=== PATIENT | male | born 1955 | race Caucasian/White ===

== ENCOUNTER 2020-03-17 08:42 | Day surgery (SDC) | payer MEDICARE ==
[~2020-03-17 08:42] MED LIST: Lactated Ringers 1,000 ML IV SCH; Midazolam 1 MG/ML 2 ML SDV ONE; Propofol 200 MG/20 ML SDV ONE
--- NOTE | 2020-03-17 10:13 | PCM.PREANE ---
Preanesthetic Assessment - Anesthesia/Transfusion/Family Hx Anesthesia History: Prior Anesthesia Without Reaction Other Type of Anesthesia Reaction Comment: Denies problem with anesthesia "get severe cramps post Colonoscopy" Family History of Anesthesia Reaction: No Transfusion History: No Prior Transfusion(s) - Review of Systems General: Fatigue Pulmonary: No Symptoms Cardiovascular: No Symptoms Gastrointestinal: No Symptoms Neurological: No Symptoms Other: Reports: None - Physical Assessment NPO Status Date: 03/16/20 Vital Signs: Last Vital Signs Temp 96.6 F L 03/17/20 09:20 Pulse 39 L 03/17/20 09:20 Resp 16 03/17/20 09:20 BP 161/79 H 03/17/20 09:20 Pulse Ox 97 03/17/20 09:20 Height: 6 ft Weight: 100.244 kg ASA Class: 2 Mental Status: Alert & Oriented x3 Airway Class: Mallampati = 2 Dentition: Reports: Normal Dentition ROM/Head Extension: Full Lungs: Clear to Auscultation, Normal Respiratory Effort Cardiovascular: Regular Rate, Regular Rhythm - Allergies Allergies/Adverse Reactions: Allergies Allergy/AdvReac Type Severity Reaction Status Date / Time No Known Allergies Allergy Verified 03/14/20 07:58 - Blood Blood Available: No - Anesthesia Plan Pre-Op Medication Ordered: Other (robinul 0.4) - Acknowledgements Anesthesia Type Planned: General Anesthesia (tiva) Pt an Appropriate Candidate for the Planned Anesthesia: Yes Alternatives and Risks of Anesthesia Discussed w Pt/Guardian: Yes Pt/Guardian Understands and Agrees with Anesthesia Plan: Yes Additional Comments: pmh resting bradycardia, 39 with normal pr interval, tremor( not on beta blockers), william PreAnesthesia Questionnaire HEENT History: Reports: None Cardiovascular History: Reports: None Respiratory History: Reports: Sleep Apnea Other Respiratory History: Sleep apnea with machine Gastrointestinal History: Reports: Colon Polyp Genitourinary History: Reports: None Musculoskeletal History: Reports: Back Pain, Chronic, Fracture Other Musculoskeletal History: hx fx collarbone and leg Neurological History: Reports: Other (See Below) Other Neuro History: benign essential tremors Psychiatric History: Reports: None Endocrine/Metabolic History: Reports: Obesity/BMI 30+ Hematologic History: Reports: None Immunologic History: Reports: None Oncologic (Cancer) History: Reports: None Dermatologic History: Reports: None - Infectious Disease History Infectious Disease History: Reports: Chicken Pox, Measles, Mumps Other Infectious Disease History: had when a child - Past Surgical History Head Surgeries/Procedures: Reports: None HEENT Surgical History: Reports: Tonsillectomy GI Surgical History: Reports: Colonoscopy Other GI Surgeries/Procedures: 3 prior colonoscopies, History polyps - SUBSTANCE USE Tobacco Use Status *Q: Never Tobacco User - HOME MEDS Home Medications: Home Meds Cholecalciferol (Vitamin D3) [Vitamin D3] 1 tab PO DAILY 03/13/20 [History] Multivitamin with Minerals [Multiple Vitamin] 1 tab PO DAILY 03/13/20 [History] - CURRENT (IN HOUSE) MEDS Current Meds: Current Medications Lactated Ringer's (Ringers, Lactated) 1,000 mls @ 125 mls/hr IV ASDIRECTED JESUS Discontinued Medications Midazolam HCl (Versed 1 Mg/Ml) Confirm Administered Dose 2 mg .ROUTE .STK-MED ONE Stop: 03/17/20 07:16 Propofol (Diprivan 20 Ml) Confirm Administered Dose 600 mg .ROUTE .STK-MED ONE Stop: 03/17/20 07:15
[2020-03-17] MEDS ORDERED: Glycopyrrolate 0.2 MG/ML SDV ONE (10:18)
--- NOTE | 2020-03-17 11:10 | PCM.OPNOTE ---
- General Post-Op/Procedure Note Date of Surgery/Procedure: 03/17/20 Operative Procedure(s): Colonoscopy with cold cecal, distal transverse and rectal polypectomies. Pre Op Diagnosis: Personal history of colon polyps. Post-Op Diagnosis: Cecal, transverse colon & rectal polyps. Diverticulosis. Anesthesia Technique: MAC (ASA II) Primary Surgeon: Emerson Ta Condition: Good Free Text/Narrative:: DICTATION [id number] CPT CODE 88010
[2020-03-17] MEDS ORDERED: Lactated Ringers 1,000 ML IV SCH (11:15)
--- NOTE | 2020-03-17 11:28 | OR ---
SURGEON: Emerson Ta M.D. DATE OF PROCEDURE: 03/17/2020 OPERATION PERFORMED: Colonoscopy with cold cecal, distal transverse, and rectal polypectomy. PRIMARY SURGEON: Emerson Ta M.D. CEMENT FINISHER APPRENTICE: JESSICA Guillory student. ANESTHESIA: MAC. ASA CLASSIFICATION: II. PREOPERATIVE DIAGNOSES: 1. Personal history of colon polyps. 2. History of diverticulosis. POSTOPERATIVE DIAGNOSES: 1. Cecal, distal transverse, and rectal polyps. 2. Pancolonic diverticulosis. DESCRIPTION OF PROCEDURE: The patient was taken to the endoscopy room and positioned on the endoscopy table in the left lateral decubitus position. Time-out was called for appropriate identification of the patient and procedure. Monitored anesthesia care was provided. The colonoscope was inserted into the rectum and advanced with moderate difficulty to the cecum. The colonoscope was briefly retroflexed in the cecum to visualize the ascending colon, then straightened and slowly withdrawn. One polyp was encountered in the cecum and removed with cold biopsy forceps. The colonoscope was then slowly withdrawn through the ascending colon, hepatic flexure, and to the distal transverse colon where a second polyp was identified and removed with cold biopsy forceps. The splenic flexure and descending colon showed no tumors or polyps. Once the colonoscope was withdrawn to the sigmoid colon, moderate diverticular changes noted. No stricture, spasm, or bleeding was noted. A third polyp was encountered in the rectum and likewise removed with cold biopsy forceps. The colonoscope was retroflexed to visualize the anal orifice from above. No tumors or polyps were seen. There were some small hemorrhoids noted, but no acute hemorrhoidal changes and no inflammation or bleeding. The colonoscope was then straightened, the rectum aspirated, and the colonoscope removed. The patient tolerated the procedure well and was taken to recovery room in stable condition. ROBERTO / ZAIN /[id number]
[2020-03-17 11:35] VITALS: BP 120/78; PULSE 47
--- NOTE | 2020-03-17 11:50 | PCM48HPAN ---
Post Anesthesia Note - EVALUATION WITHIN 48HRS OF ANESTHETIC Vital Signs in Normal Range: Yes Patient Participated in Evaluation: Yes Respiratory Function Stable: Yes Airway Patent: Yes Cardiovascular Function Stable: Yes Hydration Status Stable: Yes Pain Control Satisfactory: Yes Nausea and Vomiting Control Satisfactory: Yes Mental Status Recovered: Yes Vital Signs: Last Vital Signs Temp 35.8 C L 03/17/20 11:26 Pulse 47 L 03/17/20 11:26 Resp 14 03/17/20 11:26 BP 120/78 03/17/20 11:26 Pulse Ox 99 03/17/20 11:26 - COMMENTS/OBSERVATIONS Free Text/Narrative:: Getting dressed to leave and denies any complaints
--- NOTE | 2020-03-17 12:11 | PCM48HPAN ---
Post Anesthesia Note - EVALUATION WITHIN 48HRS OF ANESTHETIC Vital Signs in Normal Range: Yes Patient Participated in Evaluation: Yes Respiratory Function Stable: Yes Airway Patent: Yes Cardiovascular Function Stable: Yes Hydration Status Stable: Yes Pain Control Satisfactory: Yes Nausea and Vomiting Control Satisfactory: Yes Mental Status Recovered: Yes Vital Signs: Last Vital Signs Temp 96.4 F L 03/17/20 11:26 Pulse 47 L 03/17/20 11:26 Resp 14 03/17/20 11:26 BP 120/78 03/17/20 11:26 Pulse Ox 99 03/17/20 11:26
== END 2020-03-17 11:55 | disposition home or self-care (01) ==
LOC: MW.SDS 08:42
PROVIDERS: ATTEND Surgery
DX: Z12.11 Encounter for screening for malignant neoplasm of colon (principal); D12.3 Benign neoplasm of transverse colon; D12.0 Benign neoplasm of cecum; K62.1 Rectal polyp; K57.30 Diverticulosis of large intestine without perforation or abscess without bleeding; K42.0 Umbilical hernia with obstruction, without gangrene; K64.9 Unspecified hemorrhoids; Z98.890 Other specified postprocedural states; Z86.010 Personal history of colon polyps; Z80.0 Family history of malignant neoplasm of digestive organs
CPT/HCPCS: 45380; 93005; J2250; J2704; J3490; J7120

== ENCOUNTER → 2020-03-20 | Day surgery (SDC) | payer MEDICARE ==
[~2020-03-20] MED LIST changes: +Acetaminophen 1,000 MG in Premix Bag 1 BAG IV PRN; +Acetaminophen/HYDROcodone 325-5 MG Tab PO PRN; +Bupivacaine 0.5% 10 ML SDV ONE; +Glycopyrrolate 0.2 MG/ML SDV ONE; +Ketorolac 30 MG/ML SDV ONE; +Lidocaine 2% 5 ML SDV ONE; +Morphine 10 MG/ML Syringe IVPUSH PRN; +Ondansetron 4 MG/2 ML SDV ONE; +Sodium Chloride 0.9% 20 ML ONE; +ceFAZolin 1 GM Vial ONE; +ceFAZolin 2 GM in Premix Bag 1 BAG IV SCH; +fentaNYL 100 MCG/2 ML SDV IVPUSH PRN; +fentaNYL 100 MCG/2 ML SDV ONE
--- NOTE | 2020-03-20 08:12 | PCM.PREANE ---
Preanesthetic Assessment - Anesthesia/Transfusion/Family Hx Anesthesia History: Prior Anesthesia Without Reaction Other Type of Anesthesia Reaction Comment: Denies problem with anesthesia "get severe cramps post Colonoscopy" Family History of Anesthesia Reaction: No Transfusion History: No Prior Transfusion(s) - Review of Systems General: No Symptoms Pulmonary: No Symptoms Cardiovascular: Other (chronic bradycarddia with fatigue) Gastrointestinal: No Symptoms Neurological: No Symptoms Other: Reports: None - Physical Assessment NPO Status Date: 03/19/20 Height: 6 ft Weight: 100.244 kg ASA Class: 2 Mental Status: Alert & Oriented x3 Airway Class: Mallampati = 2 (receding chin) Dentition: Reports: Normal Dentition ROM/Head Extension: Full Lungs: Clear to Auscultation, Normal Respiratory Effort Cardiovascular: Regular Rate, Regular Rhythm - Allergies Allergies/Adverse Reactions: Allergies Allergy/AdvReac Type Severity Reaction Status Date / Time No Known Allergies Allergy Verified 03/14/20 07:58 - Blood Blood Available: No - Anesthesia Plan Pre-Op Medication Ordered: None - Acknowledgements Anesthesia Type Planned: General Anesthesia Pt an Appropriate Candidate for the Planned Anesthesia: Yes Alternatives and Risks of Anesthesia Discussed w Pt/Guardian: Yes Pt/Guardian Understands and Agrees with Anesthesia Plan: Yes Additional Comments: anes prob list: bradycardia PLAN: robinul to increase heart rate, then ga/lma PreAnesthesia Questionnaire HEENT History: Reports: None Cardiovascular History: Reports: None Respiratory History: Reports: Sleep Apnea Other Respiratory History: Sleep apnea with machine Gastrointestinal History: Reports: Colon Polyp Genitourinary History: Reports: None Musculoskeletal History: Reports: Back Pain, Chronic, Fracture Other Musculoskeletal History: hx fx collarbone and leg Neurological History: Reports: Other (See Below) Other Neuro History: benign essential tremors Psychiatric History: Reports: None Endocrine/Metabolic History: Reports: Obesity/BMI 30+ Hematologic History: Reports: None Immunologic History: Reports: None Oncologic (Cancer) History: Reports: None Dermatologic History: Reports: None - Infectious Disease History Infectious Disease History: Reports: Chicken Pox, Measles, Mumps Other Infectious Disease History: had when a child - Past Surgical History Head Surgeries/Procedures: Reports: None HEENT Surgical History: Reports: Tonsillectomy GI Surgical History: Reports: Colonoscopy Other GI Surgeries/Procedures: 3 prior colonoscopies, History polyps - SUBSTANCE USE Tobacco Use Status *Q: Never Tobacco User - HOME MEDS Home Medications: Home Meds Cholecalciferol (Vitamin D3) [Vitamin D3] 1 tab PO DAILY 03/13/20 [History] Multivitamin with Minerals [Multiple Vitamin] 1 tab PO DAILY 03/13/20 [History] - CURRENT (IN HOUSE) MEDS Current Meds: Current Medications Cefazolin Sodium/Dextrose 2 gm (/ Premix) 50 mls @ 100 mls/hr IV ONETIME JESUS Lactated Ringer's (Ringers, Lactated) 1,000 mls @ 125 mls/hr IV ASDIRECTED JESUS Last Admin: 03/20/20 08:10 Dose: 125 mls/hr Documented by: Discontinued Medications Fentanyl (Sublimaze) Confirm Administered Dose 100 mcg .ROUTE .STK-MED ONE Stop: 03/20/20 08:08 Midazolam HCl (Versed 1 Mg/Ml) Confirm Administered Dose 2 mg .ROUTE .STK-MED ONE Stop: 03/20/20 08:08 Propofol (Diprivan 20 Ml) Confirm Administered Dose 200 mg .ROUTE .STK-MED ONE Stop: 03/20/20 08:08
--- NOTE | 2020-03-20 10:55 | PCM.POSTAN ---
POST ANESTHESIA ASSESSMENT - MENTAL STATUS Mental Status: Alert, Oriented - VITAL SIGNS Vital Signs: Last Vital Signs Temp 98.1 F 03/20/20 10:29 Pulse 53 L 03/20/20 10:50 Resp 13 03/20/20 10:50 BP 131/70 03/20/20 10:50 Pulse Ox 93 L 03/20/20 10:50 - RESPIRATORY Respiratory Status: Respiratory Rate WNL, Airway Patent, O2 Saturation Stable - CARDIOVASCULAR CV Status: Pulse Rate WNL, Blood Pressure Stable - GASTROINTESTINAL GI Status: No Symptoms - POST OP HYDRATION Hydration Status: Adequate & Stable
--- NOTE | 2020-03-20 10:56 | PCM48HPAN ---
Post Anesthesia Note - EVALUATION WITHIN 48HRS OF ANESTHETIC Vital Signs in Normal Range: Yes Patient Participated in Evaluation: Yes Respiratory Function Stable: Yes Airway Patent: Yes Cardiovascular Function Stable: Yes Hydration Status Stable: Yes Pain Control Satisfactory: Yes Nausea and Vomiting Control Satisfactory: Yes Mental Status Recovered: Yes Vital Signs: Last Vital Signs Temp 98.1 F 03/20/20 10:29 Pulse 53 L 03/20/20 10:50 Resp 13 03/20/20 10:50 BP 131/70 03/20/20 10:50 Pulse Ox 93 L 03/20/20 10:50
--- NOTE | 2020-03-20 10:58 | PCM.OPNOTE ---
- General Post-Op/Procedure Note Date of Surgery/Procedure: 03/20/20 Operative Procedure(s): Repair incarcerated umbilical hernia Pre Op Diagnosis: Incarcerated umbilical hernia Post-Op Diagnosis: Same Anesthesia Technique: General LMA (ASA II) Primary Surgeon: Eemrson Ta Acid Regenerator: Gume Krause Fluid Replacement, Intraop: 700 EBL in mLs: 10 Condition: Good Free Text/Narrative:: Intake & Output 03/19/20 03/20/20 03/20/20 19:59 03:59 11:59 Intake Total 800 Balance 800 DICTATION [id number] CPT CODE 08782
--- NOTE | 2020-03-20 11:22 | OR ---
SURGEON: Emerson Ta M.D. DATE OF PROCEDURE: 03/20/2020 OPERATION PERFORMED: Repair of incarcerated umbilical hernia. PRIMARY SURGEON: Emerson Ta M.D. GEMOLOGIST: JESSICA Guillory student. ANESTHESIA: General LMA. ASA CLASSIFICATION: II. PREOPERATIVE DIAGNOSIS: Incarcerated umbilical hernia. POSTOPERATIVE DIAGNOSIS: Incarcerated umbilical hernia. ESTIMATED BLOOD LOSS: 10 mL. INTRAOPERATIVE FLUID REPLACEMENT: 700 mL of crystalloid. DESCRIPTION OF PROCEDURE: The patient was taken to the operating room, placed on the operating table in the supine position. Time-out was called for appropriate identification of the patient and procedure. Thigh-high TEDs and sequential compression boots were placed. Following satisfactory attainment of general endotracheal anesthesia, the abdomen was prepped with DuraPrep solution. Sterile drapes were applied. Skin just to the right of the umbilicus was infiltrated with 0.5% Marcaine solution. Skin incision was made and deepened through the subcutaneous tissue, identifying the hernia sac. The hernia sac was circumferentially dissected free sharply. Small bleeding sites were electrocoagulated. Once we were able to reduce the hernia sac, palpation in a subfascial fashion did not reveal any other fascial defects. The defect itself was approximately 1.4 cm to 1.5 cm. This was repaired with multiple closely spaced interrupted 0 Ethibond sutures. All sutures were placed under direct vision and held with hemostat until the final suture had been placed. Once all sutures were tied, the patient was given a Valsalva maneuver to 35 cm of water. The repair was solid. The wound was inspected for hemostasis, and again, small bleeding sites were electrocoagulated. The wound was irrigated with sterile saline solution. Subcutaneous tissue was closed with interrupted 3-0 Vicryl. The skin edges were reapproximated with subcuticular 4-0 Monocryl, reinforced with half-inch Steri- Strips. Sterile Tegaderm pad was placed as a dressing. Sponge, needle, and instrument counts were all correct. Following emergence from anesthesia and extubation, the patient was taken to recovery room in satisfactory condition. ROBERTO / ZAIN /[id number]
[2020-03-20 12:34] VITALS: BP 132/90; PULSE 46
== END | disposition home or self-care (01) ==
LOC: MW.SDS 07:27
PROVIDERS: ATTEND Surgery
DX: K42.0 Umbilical hernia with obstruction, without gangrene (principal); G47.30 Sleep apnea, unspecified; D12.6 Benign neoplasm of colon, unspecified; E66.9 Obesity, unspecified; Z01.812 Encounter for preprocedural laboratory examination; Z20.828 Contact with and (suspected) exposure to other viral communicable diseases; Z68.29 Body mass index [BMI] 29.0-29.9, adult; Z79.899 Other long term (current) drug therapy; Z98.890 Other specified postprocedural states; Z86.010 Personal history of colon polyps; Z80.0 Family history of malignant neoplasm of digestive organs
CPT/HCPCS: 49587; J0690; J1885; J2001; J2250; J2405; J2704; J3490; J7120; 00750; J3010